=== PATIENT | female | born 1985 | race Caucasian/White ===

== ENCOUNTER 2016-12-19 15:21 | Emergency (ER) | payer OTHER ==
[~2016-12-19] VITALS: Ht 165.1 cm; Wt 69.4 kg
[2016-12-19 15:23] VITALS: BP 110/70
--- NOTE | 2016-12-19 18:32 | NUR ---
Patient to bed 02.
--- NOTE | 2016-12-19 18:42 | NUR ---
30/F TO ED WITH C/O VAGINAL BLEEDING INTERMITENTLY X3 WEEKS. PT STATES SHE HAS PAIN IN RLW ABD. PAIN 4/10. PT STATES SHE IS 7 WEEKS PREG. DENIES N/V/D. LUNGS CLEAR BILAT. HR EVEN AND REGULAR. AAOX4. VSS. NO SIGNS OF DISTRESS.
--- NOTE | 2016-12-19 19:06 | NUR ---
Pt report given to VISHNU ALLEN. Transfer of care at this time.
[2016-12-19] MEDS ORDERED: MORPHINE SULFATE 2 MG/ML SYR IVP ONE (19:55)
--- NOTE | 2016-12-19 20:05 | NUR ---
Patient appears to be resting comfortably in bed. Vital Signs within normal limits. Respirations even and unlabored.
--- NOTE | 2016-12-19 21:10 | NUR ---
Patient appears to be resting comfortably in bed. Vital Signs within normal limits. Respirations even and unlabored.
--- NOTE | 2016-12-19 21:19 | NUR ---
PT TAKEN TO U/S VIA WHEELCHAIR BY [employer].
--- NOTE | 2016-12-19 22:09 | NUR ---
Patient appears to be resting comfortably in bed. Vital Signs within normal limits. Respirations even and unlabored.
--- NOTE | 2016-12-19 23:11 | NUR ---
Patient appears to be resting comfortably in bed. Vital Signs within normal limits. Respirations even and unlabored.
--- NOTE | 2016-12-20 00:06 | NUR ---
Patient discharged with v/s stable. Written and verbal after care instructions given and explained. Patient alert, oriented and verbalized understanding of instructions. Ambulatory with steady gait. All questions addressed prior to discharge. ID band removed. Patient advised to follow up with PMD. Rx of CIPROLAXACIN 500MG given. Patient educated on indication of medication including possible reaction and side effects. Opportunity to ask questions provided and answered.
[2016-12-20 00:08] VITALS: BP 121/72
--- NOTE | 2016-12-21 15:43 | NUR ---
RECEIVED CALL FROM LAB; PT POSITIVE FOR E. COLI AND MDRO; PER ER CHARGE NURSE KALEIGH, ALREADY CALLED PT AND ADVISED HER TO RETURN TO ER FOR ANTIBIOTIC PRESCRIPTION; PT STATED WILL FOLLOW UP WITH OB DOCTOR KENNY; CHARGE NURSE K[place]IGH ADVISED PT DR. COX [place]; PT DID NOT VERBALIZE DECISION.
== END 2016-12-20 00:08 | disposition home or self-care (01) ==
LOC: MED 15:22
DX: O02.1 Missed abortion (principal); O08.83 Urinary tract infection following an ectopic and molar pregnancy
CPT/HCPCS: 36415; 76817; 80053; 81001; 81025; 83690; 84702; 85025; 86900; 86901; 87086; 87186; 96374; 99285; J2270